=== PATIENT | male | born 1970 | race Caucasian/White ===

== ENCOUNTER 2023-05-06 12:56 | Outpatient (RCR) | payer OTHER ==
[~2023-05-06 12:56] MED LIST: CEFTIN500 MG PO; FLOMAX 0.40.4 MG/CAP PO; PERCOCET 325 MG1 TA2 PO; ZOFRAN 4MG T4 MG/TAB PO; ZYRTEC 10MG10 MG PO
== END 2023-05-08 | disposition home or self-care (01) ==
LOC: WSOH
DX: S56.211 Strain of other flexor muscle, fascia and tendon at forearm level, right arm (principal); S56.511D Strain of other extensor muscle, fascia and tendon at forearm level, right arm, subsequent encounter; S54.01XD Injury of ulnar nerve at forearm level, right arm, subsequent encounter; S54.1 Injury of median nerve at forearm level; K21.9 Gastro-esophageal reflux disease without esophagitis; T78.40XD Allergy, unspecified, subsequent encounter; Y99.0 Civilian activity done for income or pay